=== PATIENT | female | born 1945 | race Caucasian/White ===

== ENCOUNTER → 2016-07-23 | Outpatient (CLI) | payer OTHER | END | disposition home or self-care (01) | LOC: CFH 09:12 | PROVIDERS: ATTEND Physical Medicine & Rehabilitation | DX: M16.12 Unilateral primary osteoarthritis, left hip (principal); M85.662 Other cyst of bone, left lower leg; M43.16 Spondylolisthesis, lumbar region | CPT/HCPCS: 72120 ==

== ENCOUNTER 2017-02-20 00:55 | Emergency (ER) | payer OTHER ==
[~2017-02-20] VITALS: Ht 160 cm; Wt 66.3 kg
[2017-02-20] MEDS ORDERED: ASPIRIN 81 MG TABLET CHEW PO ONE (01:30)
[2017-02-20 01:43] LABS: HEMATOCRIT 44.3 % (34.6-47.8); HEMOGLOBIN 14.9 g/dL (11.7-16.4); WHITE BLOOD COUNT 5.7 x10^3/uL (3.4-10)
[2017-02-20 01:52] LABS: BLOOD UREA NITROGEN 15 mg/dL (7-18)
[2017-02-20 01:56] LABS: IS PT STATUS REG ER OR PRE ER? YES
[2017-02-20] MEDS ORDERED: ASPIRIN 81 MG TABLET CHEW ONE (02:23)
[2017-02-20 02:26] VITALS: BP 133/73
== END 2017-02-20 03:56 | disposition left against medical advice (07) ==
LOC: ED 03:50
DX: I20.9 Angina pectoris, unspecified (principal); E78.00 Pure hypercholesterolemia, unspecified
CPT/HCPCS: 36415; 71010; 80048; 82040; 84484; 85025; 93005; 99285

== ENCOUNTER 2017-02-21 09:44 | Emergency (ER) | payer OTHER ==
[~2017-02-21] VITALS: Ht 160 cm; Wt 66.7 kg
[2017-02-21 11:04] VITALS: BP 118/72
== END 2017-02-21 11:07 | disposition home or self-care (01) ==
LOC: ED 11:06
DX: B02.9 Zoster without complications (principal); E78.00 Pure hypercholesterolemia, unspecified
CPT/HCPCS: 99283

== ENCOUNTER → 2017-11-21 | Outpatient (CLI) | payer OTHER | END | disposition home or self-care (01) | LOC: CVU 08:15 | PROVIDERS: ATTEND Nurse Practitioner | DX: M79.606 Pain in leg, unspecified (principal); E78.5 Hyperlipidemia, unspecified; R20.2 Paresthesia of skin; R20.0 Anesthesia of skin | CPT/HCPCS: 93922 ==

== ENCOUNTER 2018-06-24 00:37 | Emergency (ER) | payer MEDICARE, OTHER ==
[~2018-06-24] VITALS: Ht 160 cm; Wt 69.6 kg
[2018-06-24] MEDS ORDERED: FAMOTIDINE 20 MG TABLET ONE (00:51)
[2018-06-24] MEDS ORDERED: hydrOXyzine 50MG TABLET ONE (00:51)
--- NOTE | 2018-06-24 00:57 | NUR ---
PT MEDICATED IN PIT
[2018-06-24] MEDS ORDERED: FAMOTIDINE 20 MG TABLET PO ONE (01:00)
--- NOTE | 2018-06-24 02:01 | NUR ---
PT AMBULATE TO ROOM WIH STEADY GAIT, REPORTS THAT SHE IS FEELING SLIGHTLY BETTER AT THIS TIME, NO RESP DISTRESS, CLEARING ALL SECRETIONS, VOICE CLEAR.
[2018-06-24 02:27] VITALS: BP 146/70
== END 2018-06-24 02:29 | disposition home or self-care (01) ==
LOC: ED 02:25
DX: T78.40XA Allergy, unspecified, initial encounter (principal); E78.00 Pure hypercholesterolemia, unspecified; Z88.1 Allergy status to other antibiotic agents; Z88.8 Allergy status to other drugs, medicaments and biological substances
CPT/HCPCS: 99284; J7512; Q0177

== ENCOUNTER 2020-04-15 05:56 | Observation (INO) | payer MEDICARE ==
[2020-04-09 12:16] VITALS: BP 120/75
[~2020-04-15] VITALS: Ht 160 cm; Wt 70.0 kg
[~2020-04-15 05:56] MED LIST: CETI10TA18 PO; DEXL60CA2 PO; LEVO75TA5 PO
[2020-04-15] MEDS ORDERED: EPINEPHRINE TOPICAL SOLN 1 MG/ML, 30ML ONE (06:42)
[2020-04-15] MEDS ORDERED: NEOSPORIN OINT, 15GM ONE (06:42)
[2020-04-15] MEDS ORDERED: LIDOCAINE/PF 1%, 30ML ONE (06:42)
[2020-04-15] MEDS ORDERED: FLUORESCEIN SODIUM 500 MG/5 ML ONE (06:42)
[2020-04-15] MEDS ORDERED: OXYMETAZOLINE NASAL SPRAY 0.05%,30ML ONE (06:43)
[2020-04-15] MEDS ORDERED: BACITRACIN 50,000 UNIT ONE (06:43)
[2020-04-15] MEDS ORDERED: EPINEPHRINE 1 MG/ML, 1ML ONE (06:43)
[2020-04-15] MEDS ORDERED: vento (06:52)
[2020-04-15] MEDS ORDERED: LACTATED RINGERS 1,000 ML IV SCH (07:00)
[2020-04-15] MEDS ORDERED: CHLORHEXIDINE 15 ML UDC MM ONE (07:00)
[2020-04-15] MEDS ORDERED: FENTANYL PF 250 MCG/5ML ONE (07:10)
[2020-04-15] MEDS ORDERED: MIDAZOLAM 1 MG/ML, 2ML ONE (07:10)
[2020-04-15] MEDS ORDERED: EPINEPHRINE TOPICAL SOLN 1 MG/ML, 30ML TP ONE (07:53)
[2020-04-15] MEDS ORDERED: LIDOCAINE 1%-EPI 1:100K, 20ML INFIL ONE (07:53)
[2020-04-15] MEDS ORDERED: FENTANYL PF 100 MCG/2ML ONE (11:25)
[2020-04-15] MEDS ORDERED: ALBUTEROL SULFATE 2.5 MG/3 ML NPPB PRN (11:30)
[2020-04-15] MEDS ORDERED: ONDANSETRON 2MG/ML, 2ML IVPush PRN ×2 (11:30→17:30)
[2020-04-15] MEDS ORDERED: METOCLOPRAMIDE 5 MG/ML, 2ML IV PRN (11:30)
[2020-04-15] MEDS ORDERED: OXYcodone 5 MG/5 ML ORAL.SOL UDC PO PRN (11:30)
[2020-04-15] MEDS ORDERED: PROMETHAZINE 25 MG/ML, 1ML IV PRN (11:30)
[2020-04-15] MEDS ORDERED: LABETALOL 5MG/ML, 20ML IV PRN (11:30)
[2020-04-15] MEDS ORDERED: hydrALAzine 20 MG/ML, 1ML IV PRN (11:30)
[2020-04-15] MEDS ORDERED: HYDROmorphone 1 MG/ML, 1ML INJ IV PRN (11:30)
[2020-04-15] MEDS: FENTANYL PF 100 MCG/2ML IV PRN ×2 (11:30→19:34)
[2020-04-15] MEDS ORDERED: DIAZEPAM 5 MG/ML, 2ML IV PRN ×2 (11:30)
[2020-04-15] MEDS ORDERED: KETOROLAC 30 MG/1 ML IV PRN (11:30)
[2020-04-15] MEDS ORDERED: MEPERIDINE/PF 25MG/0.5ML IVPush PRN (11:30)
[2020-04-15] MEDS: OXYMETAZOLINE NASAL SPRAY 0.05%, 15ML NAS ONE (17:00)
[2020-04-15] MEDS ORDERED: ACETAMINOPHEN 325 MG TABLET PO PRN (17:00)
[2020-04-15 17:30] VITALS: BP 127/75
[2020-04-15] MEDS: LACTATED RINGERS 1,000 ML IV SCH (18:00)
[2020-04-15] MEDS ORDERED: MORPHINE SULFATE 4 MG/ML, 1ML IVPush PRN (18:00)
[2020-04-15] MEDS ORDERED: HYDROcodone/APAP 5/325 TABLET PO PRN (18:00)
[2020-04-15 18:47] VITALS: BP 149/81
[2020-04-15] MEDS ORDERED: OXYMETAZOLINE NASAL SPRAY 0.05%, 15ML NAS PRN (19:00)
[2020-04-15] MEDS: AMOXICILLIN/CLAV 875-125MG TABLET PO SCH (22:35)
[2020-04-15 23:33] VITALS: BP 97/67
[2020-04-16] MEDS: LACTATED RINGERS 1,000 ML IV SCH ×2 (04:00→07:14)
[2020-04-16 04:05] VITALS: BP 136/71
[2020-04-16] MEDS ORDERED: PANTOPRAZOLE 40MG TABLET PO SCH (06:00)
[2020-04-16] MEDS ORDERED: LEVOTHYROXINE 75 MCG TABLET PO SCH (06:00)
[2020-04-16 07:01] VITALS: BP 104/67
[2020-04-16] MEDS: AMOXICILLIN/CLAV 875-125MG TABLET PO SCH (08:21)
[2020-04-16] MEDS ORDERED: AMOX1TAB64 PO (08:36)
[2020-04-16] MEDS ORDERED: CETIRIZINE 10 MG TABLET PO SCH (09:00)
== END 2020-04-16 11:10 | disposition home or self-care (01) ==
LOC: OUT 05:56 → ORIP 16:31 → 4NE 17:42 → DCLOUNGE 04-16 11:00
PROVIDERS: ADMIT Otolaryngology; ATTEND Otolaryngology
DX: J32.9 Chronic sinusitis, unspecified (principal); J34.2 Deviated nasal septum; J33.8 Other polyp of sinus; J95.821 Acute postprocedural respiratory failure; K44.9 Diaphragmatic hernia without obstruction or gangrene; K22.70 Barrett's esophagus without dysplasia; K21.9 Gastro-esophageal reflux disease without esophagitis; J45.909 Unspecified asthma, uncomplicated; E03.9 Hypothyroidism, unspecified; E78.5 Hyperlipidemia, unspecified; R04.0 Epistaxis; Z90.710 Acquired absence of both cervix and uterus; Z96.642 Presence of left artificial hip joint; Z77.22 Contact with and (suspected) exposure to environmental tobacco smoke (acute) (chronic); Z79.899 Other long term (current) drug therapy
CPT/HCPCS: 30520; 31253; 31259; 31267; 71045; 87070; 87075; 87102; 87205; 88304; 96374; C9122; G0378; J0171; J2250; J2405; J3010; J3490; J7120

== ENCOUNTER 2020-04-22 14:31 | Day surgery (SDC) | payer MEDICARE ==
[~2020-04-22] VITALS: Ht 160 cm; Wt 71.9 kg
[~2020-04-22 14:31] MED LIST changes: +AMOX1TAB64 PO; +OXYMETAZOLINE NASAL SPRAY 0.05%,30ML ONE; +vento
[2020-04-22 14:58] VITALS: BP 119/77
[2020-04-22] MEDS ORDERED: CHLORHEXIDINE 15 ML UDC ONE (15:03)
== END 2020-04-22 17:15 | disposition home or self-care (01) ==
LOC: OUT 14:31
PROVIDERS: ATTEND Otolaryngology
DX: J32.4 Chronic pansinusitis (principal); J33.8 Other polyp of sinus; Z20.822 Contact with and (suspected) exposure to COVID-19; Z88.2 Allergy status to sulfonamides
CPT/HCPCS: 87635

== ENCOUNTER → 2020-10-15 | Outpatient (CLI) | payer MEDICARE ==
[~2020-10-15] MED LIST changes: -OXYMETAZOLINE NASAL SPRAY 0.05%,30ML ONE
== END | disposition home or self-care (01) ==
LOC: STAR 09:51
PROVIDERS: ATTEND Thoracic Surgery (Cardiothoracic Vascular Surgery)
DX: Z01.818 Encounter for other preprocedural examination (principal); K44.9 Diaphragmatic hernia without obstruction or gangrene
CPT/HCPCS: 93005

== ENCOUNTER 2020-10-22 10:07 | Observation (INO) | payer MEDICARE ==
[~2020-10-22] VITALS: Ht 160 cm; Wt 72.0 kg
[~2020-10-22 10:07] MED LIST changes: +BUPIVACAINE/PF 0.5% ONE; +EPINEPHRINE 1 MG/ML, 1ML ONE
[2020-10-22] MEDS ORDERED: FENTANYL PF 250 MCG/5ML ONE (11:23)
[2020-10-22] MEDS ORDERED: CHLORHEXIDINE 15 ML UDC ONE (11:30)
[2020-10-22] MEDS ORDERED: CHLORHEXIDINE 15 ML UDC PO ONE (11:30)
[2020-10-22] MEDS: LACTATED RINGERS 1,000 ML IV SCH ×4 (11:31→23:30)
[2020-10-22] MEDS ORDERED: BUPIVACAINE/PF-EPI 0.5% 1:200K INFIL ONE (12:26)
[2020-10-22] MEDS ORDERED: MIDAZOLAM 1 MG/ML, 2ML IV PRN (13:00)
[2020-10-22] MEDS ORDERED: METHOCARBAMOL 1,000 MG in DEXTROSE 5% 100 ML IV PRN (13:00)
[2020-10-22] MEDS ORDERED: PROMETHAZINE 25 MG/ML, 1ML IVPush PRN (13:00)
[2020-10-22] MEDS ORDERED: MEPERIDINE/PF 25MG/0.5ML IVPush PRN (13:00)
[2020-10-22] MEDS ORDERED: OXYcodone 5 MG/5 ML ORAL.SOL UDC PO PRN (13:00)
[2020-10-22] MEDS ORDERED: LABETALOL 5MG/ML, 20ML IV PRN (13:00)
[2020-10-22] MEDS ORDERED: ALBUTEROL SULFATE 2.5 MG/3 ML NPPB PRN (13:00)
[2020-10-22] MEDS ORDERED: CEFAZOLIN 1,000 MG ONE (13:06)
[2020-10-22] MEDS ORDERED: GLYCOPYRROLATE 0.2MG/1ML, 5ML ONE (13:06)
[2020-10-22] MEDS ORDERED: PROPOFOL 10 MG/ML, 20ML ONE (13:06)
[2020-10-22] MEDS ORDERED: ROCURONIUM 10MG/ML,5ML ONE (13:06)
[2020-10-22] MEDS ORDERED: LIDOCAINE-MPF 2% ,5ML ONE (13:06)
[2020-10-22] MEDS ORDERED: ONDANSETRON 2MG/ML, 2ML ONE (13:06)
[2020-10-22] MEDS ORDERED: NEOSTIGMINE 1 MG/ML, 10ML ONE (13:06)
[2020-10-22] MEDS ORDERED: FENTANYL PF 100 MCG/2ML ONE (13:27)
[2020-10-22] MEDS ORDERED: ENALAPRILAT 1.25 MG/ML, 2ML IV PRN (13:30)
[2020-10-22] MEDS: FENTANYL PF 100 MCG/2ML IV PRN ×2 (13:30→13:48)
[2020-10-22] MEDS ORDERED: morphine SULFATE 10 MG/ML, 1ML IV PRN (13:30)
[2020-10-22] MEDS ORDERED: hydrALAzine 20 MG/ML, 1ML IV PRN (13:30)
[2020-10-22] MEDS: FAMOTIDINE 20 MG/2 ML IV SCH (13:30)
[2020-10-22] MEDS ORDERED: HYDROcodone/APAP 7.5-325MG/15ML UDC PO PRN (13:30)
[2020-10-22] MEDS ORDERED: HYDR15SO3 PO (13:39)
[2020-10-22] MEDS ORDERED: HYDROmorphone 2 MG/ML, 1ML ONE (14:20)
[2020-10-22] MEDS: HYDROmorphone 1 MG/ML, 1ML INJ IVPush PRN ×2 (14:23→14:37)
[2020-10-22] MEDS ORDERED: ACETAMINOPHEN 100 ML IVPB ONE (14:30)
[2020-10-22] MEDS ORDERED: ENOXAPARIN 40 MG/0.4 ML SQ SCH (17:00)
[2020-10-22] MEDS: ONDANSETRON 2MG/ML, 2ML IVPush PRN ×2 (17:56→22:44)
[2020-10-22 20:41] VITALS: BP 115/71
[2020-10-23] VITALS: BP 107/66
[2020-10-23] MEDS: FAMOTIDINE 20 MG/2 ML IV SCH (01:41)
[2020-10-23 03:26] VITALS: BP 123/76
[2020-10-23 07:53] VITALS: BP 115/73
[2020-10-23] MEDS ORDERED: LEVOTHYROXINE 75 MCG TABLET PO SCH (09:00)
[2020-10-23] MEDS: LACTATED RINGERS 1,000 ML IV SCH (09:30)
== END 2020-10-23 11:15 | disposition home or self-care (01) ==
LOC: OUT 10:07 → 4NE 13:35
PROVIDERS: ADMIT Thoracic Surgery (Cardiothoracic Vascular Surgery); ATTEND Thoracic Surgery (Cardiothoracic Vascular Surgery)
DX: K44.9 Diaphragmatic hernia without obstruction or gangrene (principal); K22.70 Barrett's esophagus without dysplasia; J45.909 Unspecified asthma, uncomplicated; E03.9 Hypothyroidism, unspecified; Z79.899 Other long term (current) drug therapy
CPT/HCPCS: 43282; 96372; 96374; 96375; 96376; C1781; G0378; J0131; J0171; J0690; J1170; J1650; J2405; J2704; J2710; J2800; J3010; J3490; J7120; S0020